=== PATIENT | male | born 1955 | race Caucasian/White ===

== ENCOUNTER → 2022-07-16 | Outpatient (CLI) | payer MEDICARE, OTHER ==
[~2022-07-16] MED LIST: PROZ20CA11 PO
== END ==
LOC: M LABSMTC 11:52
PROVIDERS: ATTEND Anesthesiology
DX: Z01.812 Encounter for preprocedural laboratory examination (principal); Z20.822 Contact with and (suspected) exposure to COVID-19

== ENCOUNTER 2022-07-20 08:16 | Day surgery (SDC) | payer MEDICARE, OTHER ==
[~2022-07-20] VITALS: Ht 167.6 cm; Wt 81.4 kg
[~2022-07-20 08:16] MED LIST changes: +NS 1,000 ML IV ONE
[2022-07-20] MEDS ORDERED: propofoL 200 MG/20 ML VIAL As Ordered ONE (09:25)
[2022-07-20] MEDS ORDERED: LIDOCAINE 2% 100MG/5ML SDV (FOR ANES.) As Ordered ONE (09:25)
[2022-07-20] MEDS ORDERED: ePHEDrine SULFATE 25 MG/5 ML(5MG/ML) SYRINGE As Ordered ONE (09:34)
[2022-07-20 10:24] VITALS: BP 102/71
== END 2022-07-20 10:27 | disposition home or self-care (01) ==
LOC: M OPP 08:16
PROVIDERS: ATTEND Surgery
DX: Z12.11 Encounter for screening for malignant neoplasm of colon (principal); D12.6 Benign neoplasm of colon, unspecified; F32.A Depression, unspecified; Z79.899 Other long term (current) drug therapy

== ENCOUNTER → 2023-03-22 | Outpatient (CLI) | payer MEDICARE, OTHER ==
[~2023-03-22] MED LIST changes: -NS 1,000 ML IV ONE
[2023-03-22 11:58] LABS: APPEARANCE, URINE CLEAR (CLEAR); BACTERIA, URINE AUTO NEGATIVE (NEGATIVE); BILIRUBIN, URINE AUTO NEGATIVE (NEGATIVE); BLOOD, URINE BLOOD NEGATIVE (NEGATIVE); COLOR, URINE YELLOW (YELLOW); GLUCOSE, URINE (UA) AUTO NEGATIVE (NEGATIVE); KETONE, URINE AUTO NEGATIVE (NEGATIVE); LEUKOCYTE ESTERASE, URINE AUTO NEGATIVE (NEGATIVE); NITRITE, URINE AUTO NEGATIVE (NEGATIVE); PROTEIN, URINE AUTO NEGATIVE (NEGATIVE); RBC, URINE AUTO 0 /HPF (0-3); SPECIFIC GRAVITY URINE AUTO 1.015 (1.002-1.035); SQUAMOUS EPITHELIAL CELL UR AU 0 /HPF (0-6); UROBILINOGEN, URINE AUTO 0.2 mg/dL (0.0-2.0); WBC, URINE AUTO 1 /HPF (0-3)
[2023-03-22 12:05] LABS: HEMATOCRIT 48.5 % (42.0-52.0); HEMOGLOBIN 15.6 g/dl (13.5-17.5); MEAN CORPUSCULAR HEMOGLOBIN 28.9 pg (27.0-33.0); MEAN CORPUSCULAR HGB CONC 32.2 g/dl (32.0-36.5); MEAN CORPUSCULAR VOLUME 89.8 fl (80.0-96.0); PLATELET COUNT, AUTOMATED 179 10^3/uL (150-450); WHITE BLOOD COUNT 7.9 10^3/uL (4.0-10.0)
[2023-03-22 12:32] LABS: PROSTATIC SPECIFIC AG MONITOR 1.83 NG/ML (< 4.00)
[2023-03-22 12:36] LABS: ALBUMIN 3.6 G/DL (3.2-5.2); ALKALINE PHOSPHATASE 75 U/L (46-116); ALT/SGPT 25 U/L (7.0-40); AST/SGOT 12 U/L (<34); BILIRUBIN,TOTAL 0.4 MG/DL (0.3-1.2); BLOOD UREA NITROGEN 16 MG/DL (9-23); CALCIUM LEVEL 8.7 MG/DL (8.3-10.6); CARBON DIOXIDE LEVEL 30 MMOL/L (20-31); CHLORIDE LEVEL 105 MMOL/L (98-107); CREATININE FOR GFR 1.17 MG/DL (0.70-1.30); GLOMERULAR FILTRATION RATE > 60.0 (>49); GLUCOSE, FASTING 104 MG/DL (74-106); POTASSIUM SERUM 4.4 MMOL/L (3.5-5.1); SODIUM LEVEL 142 MMOL/L (136-145); TOTAL PROTEIN 6.7 G/DL (5.7-8.2)
== END ==
LOC: M WUC 09:22
PROVIDERS: ATTEND Family Medicine
DX: F32.89 Other specified depressive episodes (principal); R35.0 Frequency of micturition; Z12.5 Encounter for screening for malignant neoplasm of prostate

== ENCOUNTER → 2023-10-09 | Outpatient (CLI) | payer MEDICARE, OTHER | LOC: M WUC 15:42 | PROVIDERS: ATTEND Physician Assistant | DX: M54.31 Sciatica, right side (principal); M25.551 Pain in right hip; M54.50 Low back pain, unspecified ==